=== PATIENT | male | born 1935 | race Caucasian/White ===

== ENCOUNTER 2018-05-25 06:54 | Day surgery (SDC) | payer MEDICARE, BC ==
[2018-05-22 16:38] VITALS: BMI 28.9
[2018-05-25] MEDS ORDERED: Bupivacaine/Epinephrine 0.25% 30 ML VIAL ONE (08:55)
[2018-05-25] MEDS ORDERED: CEFAZOLIN 2 GM/50 ML BAG ONE (09:39)
[2018-05-25 09:43] LABS: #Basophils 0.1 thou/uL (0.0-0.2); #Eosinphils 0.2 thou/uL (0.0-0.7); #Lymphocytes 1.9 thou/uL (1.20-3.40); #Monocytes 0.5 thou/uL (0.11-0.59); #Neutrophils 3.3 thou/uL (1.40-6.50); %Lymphocytes 32.1 % (21.0-51.0); %Neutrophils 55.9 % (42.0-75.0); Mean Corpuscular HGB CONC 33.3 g/dL (32.0-36.0); Mean Corpuscular Volume 93.1 fL (78.0-98.0); Mean Platelet Volume 7.6 fL (7.4-10.4); Platelet Count 256 thou/uL (130-400); RBC Distribution Width 12.4 % (11.5-14.5); Red Blood Cell (RBC) Count 4.83 mill/uL (4.70-6.10)
--- NOTE | 2018-05-25 10:12 | NM ---
LEFT BREAST LYMPHOSCINTIGRAPHY: Date: 05-25-18 History: Malignant neoplasm of unspecified site of left male breast. Radiopharmaceutical: 0.44 mCi filtered Sulfur-Colloid, subcutaneously and intradermally, left periare olar location. FINDINGS: Sulfur-colloid was placed intradermally and subcutaneously in a left periareolar location in four sep arate aliquots. Imaging was then performed. Immediate anterior and lateral views of the chest demonstrate multiple foci of increased uptake of ra diotracer within the left axillary region suggesting uptake in multiple left axillary lymph nodes. Th e two lymph nodes with most increased uptake of radiotracer were marked. Patient was transported to o perating room for surgery. IMPRESSION: Left breast lymphoscintigraphy demonstrating multiple foci of increased uptake of radiotracer within the left axillary region as described above. Findings discussed with Dr. Jennings. POS: ESTRELLITA
[2018-05-25] MEDS ORDERED: Fentanyl 100 MCG/2 ML VIAL ONE (10:14)
[2018-05-25] MEDS ORDERED: Isosulfan Blue 50 MG/5 ML VIAL ONE (10:17)
--- NOTE | 2018-05-25 12:47 | OP ---
PREOPERATIVE DIAGNOSIS: Left breast cancer. SURGEON: Eduardo Jennings M.D. PROCEDURE PERFORMED: Left total mastectomy with sentinel lymph node biopsy. INDICATIONS: This is an 83-year-old male, who noticed a mass in his left chest. 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 FINDINGS: Two sentinel nodes were found, both negative by touch prep. PROCEDURE IN DETAIL: After informed consent was obtained, the patient was taken to the operating danny m. He had undergone injection of radionucleotide in the Nuclear Medicine Department. His left chest and axilla were prepped and draped in usual fashion. Lymphazurin 3 mL was infiltrated subareolar an d peritumoral and Neoprobe was used. A baseline count of 20 was found and transcutaneous readings of 50 were found in one spot. A transverse axillary incision was performed, the subcu divided sharply, and traced down to a lymph node with in vivo counts of 120 and then ex-vivo counts of 180 sent as se ntinel node 1. We found a second area with another high count near 50, in vivo counts of 160, ex-sukumar o counts of 180, sent to pathology for further analysis. Residual counts were all less than 30. Whi tona awaiting on the results of that, an elliptical incision was performed to excise the nipple areola mass and biopsy site. The subcu was divided using the plasma blade between the junction of subcutane ous tissue and fat to the level of the pectoralis muscle circumferentially. Then it was excised off the muscle to include the fascia. It was marked with a suture superior and sent to pathology for fur ther analysis. Hemostasis achieved with electrocautery. A drain was placed and brought out through a separate stab wound. The subcu was reapproximated with interrupted 3-0 Vicryl. The skin closed wi th a running subcuticular 4-0 Rapide. Steri-Strips applied. By now, the pathology came back on the sentinel nodes, they were negative by touch prep. The subcutaneous reapproximated with interrupted 3 -0 Vicryl after hemostasis assured and the skin closed with a running subcuticular 4-0 Rapide. Steri -Strips applied. Sterile bandage applied. The patient tolerated the procedure well and was transfer red to recovery in good condition. Sponge and needle count verified correct x2.
[2018-05-25] MEDS ORDERED: Morphine 2 MG/ML SYRINGE ONE (12:50)
[2018-05-25] MEDS ORDERED: ePHEDrine/0.9% NaCl/PF SYRINGE 50 mg/10 ml ONE (15:03)
[2018-05-25] MEDS ORDERED: PHENYLEPHRINE-NS 100 MCG/ML 10 ML SYRINGE ONE (15:03)
[2018-05-25] MEDS ORDERED: PROPOFOL 200 MG/20 ML VIAL ONE (15:03)
[2018-05-25] MEDS ORDERED: Ondansetron PF 4 MG/2 ML Vial ONE (15:03)
[2018-05-25] MEDS ORDERED: Lidocaine 1% PF 5 ML VIAL ONE (15:03)
[2018-05-25] MEDS ORDERED: Dexamethasone 20 MG/5 ML VIAL ONE (15:03)
== END 2018-05-25 14:54 | disposition home or self-care (01) ==
LOC: SDC 06:54
PROVIDERS: ATTEND Surgery
PROC: 0HTU0ZZ Resection of Left Breast, Open Approach (ICD-10-PCS; principal; 2018-05-25)
PROC: 07B60ZX Excision of Left Axillary Lymphatic, Open Approach, Diagnostic (ICD-10-PCS; 2018-05-25)
DX: C50.122 Malignant neoplasm of central portion of left male breast (principal); I10 Essential (primary) hypertension; Z17.0 Estrogen receptor positive status [ER+]; Z79.84 Long term (current) use of oral hypoglycemic drugs; Z79.899 Other long term (current) drug therapy
CPT/HCPCS: 19303; 38525; 38900; 78195; 85025; 96374; A9541; Q9968; 88307; 88309; 88333; 88334; 88342; J1100; J2001; J2270; J2405; J2704; J3010

== ENCOUNTER 2021-12-25 14:26 | Outpatient (CLI) | payer MEDICARE, BC | END 2021-12-25 14:27 | disposition home or self-care (01) | LOC: BICULT 14:26 | PROVIDERS: ATTEND Internal Medicine Nephrology | DX: N17.9 Acute kidney failure, unspecified (principal); N28.1 Cyst of kidney, acquired | CPT/HCPCS: 76770 ==

== ENCOUNTER 2022-01-24 08:39 | Observation (INO) | payer MEDICARE, BC ==
[2022-01-24 09:17] LABS: #Eosinphils 0.2 thou/uL (0.0-0.7); #Lymphocytes 1.3 thou/uL (1.20-3.40); #Neutrophils 6.6 thou/uL (1.40-6.50); %Basophils 0.3 % (0.0-1.0); %Eosinophils 2.5 % (0.0-10.0); %Lymphocytes 14.6 % (21.0-51.0); %Monocytes 10.7 % (0.0-10.0); %Neutrophils 71.8 % (42.0-75.0); Hemoglobin 15.3 g/dL (14.0-18.0); Mean Corpuscular Volume 97.1 fL (78.0-98.0); Mean Platelet Volume 7.4 fL (7.4-10.4); Platelet Count 245 thou/uL (130-400); RBC Distribution Width 12.7 % (11.5-14.5); Red Blood Cell (RBC) Count 4.78 mill/uL (4.70-6.10); White Blood Cell (WBC) Count 9.2 thou/uL (4.8-10.8)
[2022-01-24 09:39] LABS: ALT (SGPT) 33 U/L (8-55); AST (SGOT) 23 U/L (5-34); Albumin 3.6 g/dL (3.4-4.8); Alkaline Phosphatase 51 U/L (40-110); Anion Gap 14 mmol/L (10-20); BUN (Urea Nitrogen) 27 mg/dL (8.4-25.7); Bilirubin, Total 0.8 mg/dL (0.2-1.2); Calc. Creatinine Clearance 0 mL/min (70-130); Calcium 9.4 mg/dL (7.8-10.44); Carbon Dioxide 24 mmol/L (23-31); Chloride 100 mmol/L (98-107); Estimated GFR 37; Globulin 3.4 g/dL (2.4-3.5); Glucose 243 mg/dL (83-110); Potassium 4.9 mmol/L (3.5-5.1); Sodium 133 mmol/L (136-145)
[2022-01-24 10:31] LABS: CK (CPK) 55 U/L (30-200); Lipase 31 U/L (8-78)
[2022-01-24] MEDS ORDERED: Sodium Chloride 0.9% 1,000 ML IV SCH (10:45)
[2022-01-24] MEDS ORDERED: Empagliflozin 25 MG TAB PO SCH (11:00)
[2022-01-24 11:32] LABS: Bilirubin Negative (Negative); Blood, Urine Negative (Negative); Clarity Clear (Clear); Glucose, Urine (Dipstick) Greater than 1000 mg/dL (Negative); Ketone, Urine Trace mg/dL (Negative); Leukocyte Negative Leu/uL (Negative); Nitrite Negative (Negative); Protein, Urine (Dipstick) Negative (Neg-Trace); Specific Gravity, Urine 1.029 (1.002-1.036); Urobilinogen Normal mg/dL (Less than 2); pH, Urine 5.5 (5.0-9.0)
[2022-01-24 12:35] LABS: SARS-CoV-2 NAA Rapid Test DETECTED (NotDetected)
[2022-01-24] MEDS ORDERED: Benzonatate 100 MG CAP PO PRN (12:48)
[2022-01-24] MEDS ORDERED: Guaifenesin DM 100-10/5 ML UDCUP PO PRN (12:49)
[2022-01-24] MEDS ORDERED: Benzonatate 100 MG CAP ONE (12:56)
[2022-01-24 16:45] VITALS: BMI 25.2
[2022-01-24] MEDS: Sodium Chloride 0.9% 1,000 ML IV SCH (18:45)
[2022-01-24] MEDS ORDERED: HumaLOG 300 UNITS/3 ML VIAL SC PRN ×2 (20:00)
[2022-01-24] MEDS ORDERED: Dextrose 5% in Water 1,000 ML IV PRN (20:00)
[2022-01-24] MEDS ORDERED: Dextrose 50% Abboject 50 ML SYRINGE SLOW IVP PRN (20:00)
[2022-01-24] MEDS ORDERED: Lorazepam 1 MG TAB PO SCH (21:00)
[2022-01-24] MEDS ORDERED: Acetaminophen 650 MG Suppository PR PRN (21:20)
[2022-01-24] MEDS ORDERED: Acetaminophen 325 MG TAB PO PRN (21:20)
[2022-01-25] MEDS: Sodium Chloride 0.9% 1,000 ML IV SCH ×2 (00:37→10:02)
[2022-01-25 04:51] LABS: Anion Gap 11 mmol/L (10-20); BUN (Urea Nitrogen) 22 mg/dL (8.4-25.7); Calc. Creatinine Clearance 41 mL/min (70-130); Calcium 8.8 mg/dL (7.8-10.44); Carbon Dioxide 26 mmol/L (23-31); Chloride 106 mmol/L (98-107); Estimated GFR 48; Glucose 122 mg/dL (83-110); Potassium 4.7 mmol/L (3.5-5.1); Sodium 138 mmol/L (136-145)
[2022-01-25 05:11] LABS: Hemoglobin 13.2 g/dL (14.0-18.0); Mean Corpuscular HGB CONC 32.9 g/dL (32.0-36.0); Mean Corpuscular Hemoglobin 32.4 pg (27.0-31.0); Mean Corpuscular Volume 98.7 fL (78.0-98.0); Mean Platelet Volume 7.4 fL (7.4-10.4); Platelet Count 188 thou/uL (130-400); RBC Distribution Width 12.6 % (11.5-14.5); Red Blood Cell (RBC) Count 4.07 mill/uL (4.70-6.10); White Blood Cell (WBC) Count 6.3 thou/uL (4.8-10.8)
[2022-01-25 05:12] LABS: Band 5 % (5-11); Hypochromia SLIGHT = 6-15 cells (100X) (0-5/hpf); Lymphocytes 32 % (21-51); MDiff Complete? YES; Monocytes 7 % (0-10); Neutrophil 55 % (42-75); Platelet Morphology Comment Appears Adequate; Reactive Lymphocytes 1 % (0-10)
[2022-01-25 08:15] LABS: Hemoglobin A1c 8.2 % (4.0-6.0)
[2022-01-25] MEDS ORDERED: Empagliflozin 25 MG TAB PO SCH (09:00)
[2022-01-25 12:44] VITALS: BP 140/69; TEMP 97.5
== END 2022-01-25 16:40 | disposition home or self-care (01) ==
LOC: ERS 08:39 → ERHOLD 10:14 → INTOOBSV 10:14 → 2NO 16:20
PROVIDERS: ADMIT Family Medicine; ATTEND Family Medicine
DX: E86.9 Volume depletion, unspecified (principal); I12.9 Hypertensive chronic kidney disease with stage 1 through stage 4 chronic kidney disease, or unspecified chronic kidney disease; E11.22 Type 2 diabetes mellitus with diabetic chronic kidney disease; N18.4 Chronic kidney disease, stage 4 (severe); N17.9 Acute kidney failure, unspecified; U07.1 COVID-19; R13.19 Other dysphagia; R63.4 Abnormal weight loss; Z68.25 Body mass index [BMI] 25.0-25.9, adult; Z85.3 Personal history of malignant neoplasm of breast; Z87.891 Personal history of nicotine dependence; Z79.4 Long term (current) use of insulin; Z79.84 Long term (current) use of oral hypoglycemic drugs; Z79.899 Other long term (current) drug therapy
CPT/HCPCS: 36415; 36416; 71045; 80048; 80053; 81003; 82550; 83036; 83605; 83690; 83880; 84484; 85025; 87040; 93005; 94760; 96360; J7050; U0002

== ENCOUNTER 2022-01-30 20:00 | Emergency (ER) | payer MEDICARE, BC ==
[2022-01-30 21:02] LABS: #Basophils 0.1 thou/uL (0.0-0.2); #Eosinphils 0.3 thou/uL (0.0-0.7); #Lymphocytes 3.1 thou/uL (1.20-3.40); #Monocytes 0.8 thou/uL (0.11-0.59); #Neutrophils 4.3 thou/uL (1.40-6.50); %Basophils 0.8 % (0.0-1.0); %Eosinophils 3.5 % (0.0-10.0); %Lymphocytes 36.1 % (21.0-51.0); %Monocytes 8.9 % (0.0-10.0); %Neutrophils 50.7 % (42.0-75.0); Hemoglobin 13.6 g/dL (14.0-18.0); Mean Corpuscular HGB CONC 32.8 g/dL (32.0-36.0); Mean Corpuscular Hemoglobin 31.7 pg (27.0-31.0); Mean Corpuscular Volume 96.7 fL (78.0-98.0); Mean Platelet Volume 7.2 fL (7.4-10.4); Platelet Count 243 thou/uL (130-400); RBC Distribution Width 12.6 % (11.5-14.5); Red Blood Cell (RBC) Count 4.29 mill/uL (4.70-6.10); White Blood Cell (WBC) Count 8.5 thou/uL (4.8-10.8)
[2022-01-30 21:23] LABS: ALT (SGPT) 27 U/L (8-55); AST (SGOT) 23 U/L (5-34); Albumin 3.4 g/dL (3.4-4.8); Alkaline Phosphatase 56 U/L (40-110); Anion Gap 13 mmol/L (10-20); BUN (Urea Nitrogen) 29 mg/dL (8.4-25.7); Bilirubin, Total 0.3 mg/dL (0.2-1.2); Calc. Creatinine Clearance 0 mL/min (70-130); Carbon Dioxide 28 mmol/L (23-31); Chloride 106 mmol/L (98-107); Estimated GFR 49; Globulin 3.1 g/dL (2.4-3.5); Glucose 218 mg/dL (83-110); Potassium 4.3 mmol/L (3.5-5.1); Protein, Total 6.5 g/dL (5.8-8.1); Sodium 143 mmol/L (136-145)
== END 2022-01-30 22:20 | disposition home or self-care (01) ==
LOC: ERS 20:00
DX: I82.612 Acute embolism and thrombosis of superficial veins of left upper extremity (principal); D64.9 Anemia, unspecified; H81.93 Unspecified disorder of vestibular function, bilateral; I12.9 Hypertensive chronic kidney disease with stage 1 through stage 4 chronic kidney disease, or unspecified chronic kidney disease; E11.22 Type 2 diabetes mellitus with diabetic chronic kidney disease; N18.9 Chronic kidney disease, unspecified; Z87.891 Personal history of nicotine dependence; Z79.899 Other long term (current) drug therapy; Z79.4 Long term (current) use of insulin
CPT/HCPCS: 36415; 70450; 80053; 83880; 84484; 85025

== ENCOUNTER 2024-08-11 08:45 | Outpatient (CLI) | payer MEDICARE, BC ==
[2024-08-11 10:12] LABS: #Basophils 0.03 10x3/uL (0.0-0.2); %Basophils 0.3 % (0.0-1.0); %Eosinophils 1.1 % (0.0-10.0); %Lymphocytes 14.7 % (21.0-51.0); %Neutrophils 73.4 % (42.0-75.0); Hematocrit 45.8 % (42.0-52.0); Hemoglobin 15.1 g/dL (14.0-18.0); Mean Corpuscular Hemoglobin 29.8 pg (27.0-31.0); Mean Corpuscular Volume 90.3 fL (78.0-98.0); Mean Platelet Volume 10.2 fL (7.4-10.4); Platelet Count 344 10x3/uL (130-400); RBC Distribution Width 13.8 % (11.5-14.5); Red Blood Cell (RBC) Count 5.07 mill/uL (4.70-6.10)
[2024-08-11 10:30] LABS: Anion Gap 13 mmol/L (10-20); BUN (Urea Nitrogen) 15 mg/dL (8.4-25.7); Calc. Creatinine Clearance 0 mL/min (70-130); Calcium 9.4 mg/dL (7.8-10.44); Carbon Dioxide 28 mmol/L (23-31); Chloride 105 mmol/L (98-107); Estimated GFR 84; Glucose 133 mg/dL (83-110); Potassium 4.5 mmol/L (3.5-5.1); Sodium 141 mmol/L (136-145)
[2024-08-11 11:34] LABS: Prothrombin Time 13.3 sec (12.0-14.7)
[2024-08-11 11:35] LABS: PTT 36.4 sec (22.9-36.1)
== END 2024-08-11 08:46 | disposition home or self-care (01) ==
LOC: LABBT 08:45
PROVIDERS: ATTEND Surgery
DX: Z01.818 Encounter for other preprocedural examination (principal); M48.062 Spinal stenosis, lumbar region with neurogenic claudication
CPT/HCPCS: 80048; 85025; 85610; 85730; 93005; 93010

== ENCOUNTER 2024-08-12 08:28 | Observation (INO) | payer MEDICARE, BC ==
[2024-08-11 08:53] VITALS: BMI 27.3
[2024-08-12] MEDS ORDERED: Lidocaine 1% MPF 2 ML VIAL ONE (08:57)
[2024-08-12] MEDS ORDERED: Lidocaine 1% PF 5 ML VIAL ONE (09:31)
[2024-08-12] MEDS ORDERED: Rocuronium Bromide 10 MG/ML (10ML VIAL) ONE (09:31)
[2024-08-12] MEDS ORDERED: PROPOFOL 20 ML ONE (09:32)
[2024-08-12] MEDS ORDERED: fentaNYL PF 100 MCG/2 ML SYRINGE ONE (09:32)
[2024-08-12] MEDS ORDERED: SUGAMMADEX SODIUM 200 MG/2 ML VIAL ONE ×2 (09:48→13:50)
[2024-08-12] MEDS ORDERED: Lidocaine 2% PF 5 ML VIAL ONE ×2 (09:49→13:55)
[2024-08-12] MEDS ORDERED: Ketorolac Tromethamine 30 MG (1 mL) VIAL ONE (10:00)
[2024-08-12] MEDS ORDERED: KETAMINE 100 MG/ML (5ML VIAL) ONE (10:41)
[2024-08-12] MEDS ORDERED: Etomidate 40 MG (20 mL) VIAL ONE (10:41)
[2024-08-12] MEDS ORDERED: CEFAZOLIN 2 GM VIAL ONE (10:46)
[2024-08-12] MEDS ORDERED: Sterile Water 10 ML ONE (11:07)
[2024-08-12] MEDS ORDERED: Labetalol HCl 100 MG/20 ML VIAL ONE (11:18)
[2024-08-12] MEDS ORDERED: Dexamethasone 20 MG/5 ML VIAL ONE (11:30)
[2024-08-12] MEDS ORDERED: PHENYLEPHRINE-NS 100 MCG/ML 10 ML SYRINGE ONE (11:34)
[2024-08-12] MEDS ORDERED: Phenylephrine 40 MG/NS 250 ML 250 ML ONE (12:03)
[2024-08-12] MEDS ORDERED: ePHEDrine Sulfate 50 MG/10 ML VIAL ONE (12:14)
[2024-08-12] MEDS ORDERED: Ondansetron PF 4 MG/2 ML Vial ONE (13:30)
[2024-08-12] MEDS ORDERED: HYDROmorphone 2 MG/ML VIAL SLOW IVP PRN (13:45)
[2024-08-12] MEDS ORDERED: PACU-Morphine 4MG/ML VIAL SLOW IVP PRN (13:45)
[2024-08-12] MEDS ORDERED: Ondansetron HCl/PF 4 MG/2 ML Vial IVP PRN (13:45)
[2024-08-12] MEDS ORDERED: Promethazine HCl 25 MG/ML VIAL IM PRN (13:45)
[2024-08-12] MEDS ORDERED: Morphine Sulfate 2 MG/ML SYRINGE SLOW IVP PRN (13:45)
[2024-08-12] MEDS ORDERED: fentaNYL 50 mcg/mL 1 mL Vial ONE ×4 (13:48→17:00)
[2024-08-12] MEDS ORDERED: Ondansetron PF 4 MG/2 ML Vial IVP PRN (14:04)
[2024-08-12] MEDS ORDERED: diphenhydrAMINE 25 MG CAP PO PRN (14:04)
[2024-08-12] MEDS ORDERED: Acetaminophen 325 MG TAB PO PRN (14:04)
[2024-08-12] MEDS ORDERED: Morphine 2 MG/ML VIAL SLOW IVP PRN (14:04)
[2024-08-12] MEDS ORDERED: traMADol HCl 50 MG TAB PO PRN (14:04)
[2024-08-12] MEDS ORDERED: hydrALAZINE 20 MG/ML VIAL SLOW IVP PRN (14:07)
[2024-08-12] MEDS ORDERED: Thrombin 5000 UNITS/5 ML VIAL ONE (14:16)
[2024-08-12] MEDS ORDERED: Vancomycin 1 GM VIAL ONE (14:16)
[2024-08-12] MEDS ORDERED: Morphine 4 MG/ML VIAL ONE (15:49)
[2024-08-12] MEDS ORDERED: Morphine 2 MG/ML VIAL ONE ×3 (16:04→16:38)
[2024-08-12] MEDS: tiZANidine HCl 4 MG TAB PO PRN (19:05)
[2024-08-12] MEDS: Acetaminophen/Codeine 30-300mg Tablet PO PRN (19:06)
[2024-08-12] MEDS: CEFAZOLIN 2 GM in Sodium Chloride 0.9% 100 ML IVPB SCH (19:06)
[2024-08-12] MEDS: Milk Of Magnesia 30 ML UDCUP PO PRN (19:15)
[2024-08-12] MEDS: HYDROcodone/Acetaminophen 7.5/325 mg Tablet PO PRN (22:05)
[2024-08-12] MEDS: Sodium Chloride 0.9% 1,000 ML IV SCH (22:06)
[2024-08-13] MEDS: Empagliflozin 10 MG TAB PO SCH (08:22)
[2024-08-13] MEDS: Losartan 25 MG TAB PO SCH (08:22)
[2024-08-13] MEDS: Meloxicam 15 MG TAB PO SCH (08:23)
[2024-08-13] MEDS: metFORMIN 500 MG TAB PO SCH (08:23)
[2024-08-13] MEDS ORDERED: Semaglutide [Rybelsus] 3 MG Tab PO SCH (09:00)
[2024-08-13 15:32] VITALS: BP 171/94; TEMP 99.4
== END 2024-08-13 15:56 | disposition home or self-care (01) ==
LOC: SDC 08:28 → SURG A 14:04
PROVIDERS: ADMIT Surgery; ATTEND Surgery
PROC: 01NB0ZZ Release Lumbar Nerve, Open Approach (ICD-10-PCS; principal; 2024-08-12)
DX: M48.062 Spinal stenosis, lumbar region with neurogenic claudication (principal); M21.372 Foot drop, left foot
CPT/HCPCS: 63047; 63048 ×2; 97116; 97530; 97535; J1100; J2270; J2272; J2405; J2704; J3010; J3370; J7030; J1885